=== PATIENT | male | born 1970 | race Caucasian/White ===

== ENCOUNTER → 2024-11-17 | Outpatient (CLI) | payer BC, SELFPAY ==
--- NOTE | 2024-11-17 07:11 | EKG12_ITS ---
Test Reason : PRE OP Blood Pressure : */* mmHG Vent. Rate : 87 BPM Atrial Rate : 87 BPM P-R Int : 146 ms QRS Dur : 140 ms QT Int : 376 ms P-R-T Axes : 79 85 55 degrees QTcB Int : 452 ms Normal sinus rhythm Possible Left atrial enlargement Right bundle branch block Abnormal ECG Confirmed by CAROLE HUGHES, UDAY ([id number]), telegraph editor HENYR PRICE ([id number]) on 11/17/2024 1:54:02 PM Referred By: Pasquale Cartagena Confirmed By: UDAY LAM MD
--- NOTE | 2024-11-17 07:25 | CT_ITS ---
CT LEFT LOWER EXTREMITY WITH 3-D IMAGING CLINICAL INDICATION: PRIMARY OSTEOARTHRITIS LEFT KNEE TECHNIQUE: Axial CT images of the left lower extremity (including left hip, left knee, and ankle) was performed without IV contrast material. Coronal and sagittal reformats were provided. The protocol utilizes one or more of the following dose reduction techniques: automated exposure control, adjustment of mA and/or kV according to patient size, and/or use of iterative reconstruction technique. RADIATION DOSAGE (If Supplied By Facility): CTDIvol = ( 18.66 ) mGy, DLP = ( 1310.75 ) mGycm COMPARISON: No relevant prior comparison study available. FINDINGS: Bones: Normal left hip joint. There is mild tricompartment degenerative arthrosis of the left knee, most pronounced in the medial femorotibial compartment where there is joint space narrowing, marginal osteophyte formation, and subchondral sclerosis/cyst formation. Normal left ankle. Osseous structures are normal without evidence of fracture or dislocation. No lytic or blastic osseous masses. Soft Tissues: There is a small left knee joint effusion. There is a 9 mm ossified loose body in the posterior femorotibial joint recess of the left knee (axial series 2 image 310). There is chronic sigmoid diverticulosis without acute diverticulitis. The deep soft tissue structures are otherwise unremarkable. The superficial soft tissues are unremarkable without evidence of edema, hematoma, or foreign body. CT/Extremity Lower without Contra IMPRESSION: Mild tricompartment degenerative arthrosis of the left knee, most pronounced in the medial femorotibial compartment. Small left knee joint effusion. 9 mm ossified loose body in the posterior femorotibial joint recess of the left knee. Electronically Signed: Robinson Walton MD at 11:09 EST ,
[2024-11-17 07:58] LABS: Absolute Lymphocyte Count 2.02 X10^3/uL (0.83-4.51); Basophil# 0.08 X10^3/uL; Eosinophil# 0.74 X10^3/uL; Eosinophils% 9.7 % (0-5); Hematocrit 45.9 % (40-54); Hemoglobin 14.8 g/dL (13.0-16.5); Lymphocyte # 2.02 X10^3/ul (0.83-4.51); Lymphocyte % 26.5 % (19-41); Mean Corp Hgb Conc 32.2 g/dL (32-36); Mean Corpuscular Hgb 28.8 pg (27.0-32.0); Mean Corpuscular Volume 89.3 fL (80-94); Mean Platelet Vol. 8.4 fl (6.2-12.0); Monocyte# 0.78 X10^3/uL; Monocyte% 10.2 % (0-10); NRBC Flagged by Analyzer 0 % (0-5); Neutrophil # 3.98 X10^3/uL (2.7-7.7); Neutrophil % 52.3 % (47-70); Platelet Count 301 K/mm3 (150-450); RBC Distribution Width SD 42.6 fl (35.1-43.9); Red Blood Count 5.14 M/mm3 (4.6-6.2); White Blood Count 7.6 K/mm3 (4.4-11.0)
[2024-11-17 08:13] LABS: Albumin, Serum 3.5 g/dL (3.2-5.0); Anion Gap 2 (5-15); BUN 37 mg/dL (7-18); BUN/Creat Ratio 30.8 RATIO (10-20); Calcium,Total 9.1 mg/dL (8.5-10.1); Chloride 106 mmol/L (98-107); EST Glomerular Filtration Rate 66 mL/min (>60); Est Glom Filt Rate - Afr Amer 80 mL/min (>60); Glucose 157 mg/dL (74-106); Potassium 4.4 mmol/L (3.5-5.1); Sodium Level 138 mmol/L (136-145)
[2024-11-17 08:20] LABS: Hemoglobin A1c 6.8 % (3.8-5.6)
== END | disposition home or self-care (01) ==
PROVIDERS: PCP Family Medicine; Referring Provider Specialist; Visit Provider Specialist
DX: Z01.818 Encounter for other preprocedural examination (principal); E11.9 Type 2 diabetes mellitus without complications; M17.0 Bilateral primary osteoarthritis of knee; M21.162 Varus deformity, not elsewhere classified, left knee; Z01.810 Encounter for preprocedural cardiovascular examination; E78.00 Pure hypercholesterolemia, unspecified; I10 Essential (primary) hypertension; E07.9 Disorder of thyroid, unspecified